=== PATIENT | female | born 1955 | race Caucasian/White ===

== ENCOUNTER 2021-04-21 07:32 | Outpatient (CLI) | payer MEDICARE ==
[2021-04-21 14:55] LABS: ALBUMIN 4.2 g/dL (3.2-5.5); ALBUMIN/GLOBULIN RATIO 1.6 (1.0-2.2); ALKALINE PHOSPHATASE 55 IU/L (42-121); ALT ALANINE AMINOTRANSFERASE 19 IU/L (10-60); AST ASPARTATE AMINOTRANSFERASE 25 IU/L (10-42); BILIRUBIN,TOTAL 1.5 mg/dL (0.2-1.0); BUN - BLOOD UREA NITROGEN 11 mg/dL (6-20); CARBON DIOXIDE - CO2 27 mmol/L (21-32); CHLORIDE 97 mmol/L (101-111); CHOLESTEROL 241 mg/dL; CREATININE 0.6 mg/dL (0.4-1.0); GFR - MDRD 100 (>89); GLUCOSE 104 mg/dL (70-100); HDL CHOLESTEROL 118 mg/dL; LDL CHOLESTEROL,CALCULATED 114 mg/dL; POTASSIUM 4.1 mmol/L (3.5-5.0); SODIUM 133 mmol/L (135-145); TOTAL PROTEIN 6.8 g/dL (6.7-8.2); TRIGLYCERIDES 43 mg/dL; VLDL CHOLESTEROL 9 mg/dL
[2021-04-21 15:04] LABS: THYROID STIMULATING HORMONE 3.04 uIU/mL (0.34-5.60)
[2021-04-21 15:20] LABS: BASOPHILS # (AUTO) 0.1 10^3/uL (0.0-0.1); BASOPHILS % (AUTO) 1.3 %; EOSINOPHILS # (AUTO) 0.1 10^3/uL (0.0-0.7); EOSINOPHILS % (AUTO) 1.3 %; HCT - HEMATOCRIT 39.4 % (37.0-47.0); LYMPHOCYTES # (AUTO) 1.2 10^3/uL (1.5-3.5); LYMPHOCYTES % (AUTO) 30.5 %; MEAN CORPUSCULAR HEMOGLOBIN 31.1 pg (27.0-31.0); MEAN CORPUSCULAR VOLUME 94.3 fL (81.0-99.0); MEAN PLATELET VOLUME 11.3 fL (7.9-10.8); MONOCYTES # (AUTO) 0.2 10^3/uL (0.0-1.0); MONOCYTES % (AUTO) 5.6 %; NEUTROPHILS # (AUTO) 2.4 10^3/uL (1.5-6.6); PLT - PLATELET COUNT 261 10^3/uL (130-450); RED BLOOD COUNT 4.18 10^6/uL (4.20-5.40); RED CELL DISTRIBUTION WIDTH 11.9 % (12.0-15.0); WHITE BLOOD COUNT 3.9 x10^3/uL (4.8-10.8)
[2021-04-21 20:10] LABS: ESTIMATED AVERAGE GLUCOSE 111 mg/dL (70-100); HEMOGLOBIN A1c% 5.5 % (4.27-6.07)
[2021-04-22 13:00] LABS: HEPATITIS C ANTIBODY NON-REACTIVE (NON-REACTIVE)
== END 2021-04-21 07:33 | disposition home or self-care (01) ==
LOC: LAB.S 07:32
PROVIDERS: ATTEND Internal Medicine
DX: R20.0 Anesthesia of skin (principal); Z11.59 Encounter for screening for other viral diseases; Z80.0 Family history of malignant neoplasm of digestive organs; R03.0 Elevated blood-pressure reading, without diagnosis of hypertension
CPT/HCPCS: 36415; 80053; 80061; 82607; 83036; 83721; 84443; 85025; 86803

== ENCOUNTER 2021-05-25 09:40 | Outpatient (CLI) | payer MEDICARE ==
--- NOTE | 2021-06-10 08:28 | Mammography Report ---
BILATERAL DIGITAL SCREENING MAMMOGRAM 3D/2D WITH EXAGGERATED CC: 05/25/2021 CLINICAL: Routine screening. No prior exams were available for comparison. The tissue of both breasts is heterogeneously dense. T his may lower the sensitivity of mammography. No significant masses, calcifications, or other findings are seen in either breast. IMPRESSION: NEGATIVE There is no mammographic evidence of malignancy. A 1 year screening mammogram is recommended. This exam was interpreted at Station ID: [id number]. NOTE: For mammograms, a report in lay terms will be sent to the patient. Approximately 15% of breast malignancies will not be visualized mammographically. In the management of a palpable breast mass, a negative mammogram must not discourage biopsy of a clinically suspicious lesion. Electronically Signed By: Jeyson Kumar M.D. ddp/penrad:06/09/2021 08:15:43 ACR BI-RADS Category 1: Negative 3341F PARENCHYMAL PATTERN: (D) - The breast(s) demonstrate(s) heterogeneously dense fibroglandular sandip hollingsworth. BI-RADS CATEGORY: (1) - 1 RECOMMENDATION: (ANNUAL) - Recommend routine annual screening mammography. [id number] 1 year screening LATERALITY: (B)
== END 2021-05-25 09:41 | disposition home or self-care (01) ==
LOC: DI.S 09:40
PROVIDERS: ATTEND Internal Medicine
DX: Z12.31 Encounter for screening mammogram for malignant neoplasm of breast (principal)

== ENCOUNTER 2023-02-07 08:43 | Outpatient (CLI) | payer MEDICARE ==
--- NOTE | 2023-02-09 09:00 | Mammography Report ---
BILATERAL DIGITAL SCREENING MAMMOGRAM 3D/2D: 02/07/2023 CLINICAL: Routine screening. Comparison is made to exam dated: 05/25/2021 mammogram - [facility]. Both breasts are heterogeneously dense, which may obscure small masses (category c / 51-75% glandular tissue). No significant masses, calcifications, or other findings are seen in either breast. There has been no significant interval change. IMPRESSION: NEGATIVE There is no mammographic evidence of malignancy. A 1 year screening mammogram is recommended. Based on the Tyrer Cuzick model (a risk assessment model) the patients lifetime risk is 11.1% and he r 10 year risk is 6.6%. According to the ACR, ACS, and NCCN guidelines, an annual breast MRI exam adrianne ng with mammogram is recommended if the patients lifetime risk is 20% or greater. This exam was interpreted at Station ID: [id number]. NOTE: For mammograms, a report in lay terms will be sent to the patient. Approximately 15% of breast malignancies will not be visualized mammographically. In the management of a palpable breast mass, a negative mammogram must not discourage biopsy of a clinically suspicious lesion. Electronically Signed By: Livan Padron M.D. aty/daryl:02/07/2023 10:06:12 letter sent: No_Letter ACR BI-RADS Category 1: Negative 3341F PARENCHYMAL PATTERN: (D) - The breast(s) demonstrate(s) heterogeneously dense fibroglandular parjaylay ma. BI-RADS CATEGORY: (1) - 1 Mammogram [id number] 1 year screening LATERALITY: (B)
== END 2023-02-07 08:44 | disposition home or self-care (01) ==
LOC: DI.S 08:43
PROVIDERS: ATTEND Internal Medicine
DX: Z12.31 Encounter for screening mammogram for malignant neoplasm of breast (principal)

== ENCOUNTER 2023-06-06 12:54 | Emergency (ER) | payer MEDICARE ==
[2023-06-06 13:37] VITALS: O2SAT 100
[2023-06-06] MEDS ORDERED: ONDANSETRON 4 MG/2 ML VIAL IVP STA (13:58)
[2023-06-06] MEDS ORDERED: SODIUM CHLORIDE 0.9% 1,000 ML IV STA (13:58)
[2023-06-06] MEDS ORDERED: HYDROmorphone 1 MG/ML CARPUJECT IVP STA (13:58)
--- NOTE | 2023-06-06 14:02 | ED Physician Documentation ---
History of Present Illness - Stated complaint Stated Complaint: ABD PX,VOMITING - Chief complaint Chief Complaint: Abd Pain - Additonal information Additional information: 67-year-old female presents emergency department for evaluation of sudden right lower quadrant abdominal pain with associated vomiting. Began while she was sitting at the sewing machine. No fevers. Patient denies any pertinent past surgical history. Denies any past medical history. Takes no prescribed medications. No tobacco or alcohol use. On presentation to the emergency department the patient appears very uncomfortable holding her right side of the abdomen. Review of Systems Constitutional: denies: Fever Throat: reports: Reviewed and negative Cardiac: reports: Reviewed and negative Respiratory: reports: Reviewed and negative GI: reports: Abdominal Pain, Nausea, Vomiting : reports: Reviewed and negative Skin: reports: Reviewed and negative Musculoskeletal: reports: Reviewed and negative PD PAST MEDICAL HISTORY - Past Medical History Past Medical History: No - Past Surgical History Past Surgical History: No - Present Medications Home Medications: Ambulatory Orders Medication Instructions Recorded Confirmed polyethylene glycoL 3350(BULK) 17 gm PO DAILY PRN #1 each 06/06/23 [Miralax] - Allergies Allergies/Adverse Reactions: Allergies Allergy/AdvReac Type Severity Reaction Status Date / Time No Known Drug Allergies Allergy Verified 06/06/23 13:33 - Social History Does the pt smoke?: No Smoking Status: Never smoker Does the pt drink ETOH?: Yes Does the pt have substance abuse?: No PD ED PE NORMAL - General General: Alert and oriented X 3. No: No acute distress (Uncomfortable and in pain. Crying. Holding her right abdomen.) - HEENT HEENT: PERRL - Neck Neck: Supple, no meningeal sign - Cardiac Cardiac: RRR - Respiratory Respiratory: No respiratory distress - Abdomen Abdomen: Normal bowel sounds, Soft. No: Non tender (He equivocal McBurney's. Positive guarding and rebound right lower quadrant percussion and palpation tenderness) - Back Back: No CVA TTP - Derm Derm: Normal color, Warm and dry - Extremities Extremities: No deformity - Neuro Neuro: Alert and oriented X 3, shopper 2-12 intact Eye Opening: Spontaneous Motor: Obeys Commands Verbal: Oriented GCS Score: 15 Results - Vitals Vitals: Vital Signs - 24 hr 06/06/23 06/06/23 06/06/23 13:29 13:33 15:33 Temperature 36.2 C L 36.5 C 36.5 C Heart Rate 54 L 54 L 60 Respiratory 16 16 16 Rate Blood Pressure 169/85 H 169/85 H 158/84 H O2 Saturation 100 100 100 06/06/23 17:00 Temperature 36.8 C Heart Rate 60 Respiratory 16 Rate Blood Pressure 140/82 H O2 Saturation 100 Oxygen O2 Source Room air - Labs Labs: Laboratory Tests 06/06/23 06/06/23 06/06/23 14:00 14:00 15:18 WBC 12.3 H RBC 4.39 Hgb 13.3 Hct 41.0 MCV 93.4 MCH 30.3 MCHC 32.4 RDW 12.2 Plt Count 265 MPV 10.2 Neut # (Auto) 10.5 H Lymph # (Auto) 1.1 L Spink # (Auto) 0.6 Eos # (Auto) 0.0 Baso # (Auto) 0.1 Absolute Nucleated RBC 0.00 Nucleated RBC % 0.0 Sodium 135 Potassium 4.2 Chloride 100 L Carbon Dioxide 28 Anion Gap 7.0 BUN 15 Creatinine 0.8 Estimated GFR (MDRD) 71 L Glucose 142 H Calcium 9.5 Total Bilirubin 1.2 H AST 19 ALT 12 Alkaline Phosphatase 55 Total Protein 7.3 Albumin 4.6 Globulin 2.7 Albumin/Globulin Ratio 1.7 Lipase 18 Urine Color YELLOW Urine Clarity CLEAR Urine pH 6.5 Ur Specific Baldwin 1.015 Urine Protein NEGATIVE Urine Glucose (UA) NEGATIVE Urine Ketones 40 H Urine Occult Blood SMALL H Urine Nitrite NEGATIVE Urine Bilirubin NEGATIVE Urine Urobilinogen 0.2 (NORMAL) Ur Leukocyte Esterase NEGATIVE Urine RBC 6-10 H Urine WBC 0-3 Ur Squamous Epith Cells RARE Squamous Urine Bacteria None Seen Ur Microscopic Review INDICATED Urine Culture Comments NOT INDICATED - Rads (name of study) abd pelvis w/IV contrast Relevant Findings:: Final report received (Unable to discretely identify the appendix. Mild to moderate distention of the right lower quadrant small and large bowel loops is seen. These are filled with fluid and fecal material. Sufficient clinical concern, consider repeat with IV and oral contrast.) PD Medical Decision Making - ED course Complexity details: reviewed results, re-evaluated patient, considered differential, d/w patient, d/w family ED course: 1400: This is a very uncomfortable appearing 67-year-old female that presents to the emergency department for evaluation of acute right lower quadrant abdominal pain. The patient began having pain about 2 hours ago while sitting at a sewing machine. Physical exam shows some guarding and rebound with an equivocal McBurney's in the right lower quadrant. This time I have a high degree of suspicion for acute appendicitis. Patient is surgically karri. I have ordered immediate labs as well as CT imaging. Unfortunately we do not have surgical coverage available at [facility] today and she will likely need transfer should there be positive pertinent CT findings. CT was evaluated by patient's labs of evaluated by myself showed a mild leukocytosis with white count of 12,000. Her electrolytes were without acute derangement. Subsequently a CT of the abdomen was completed to evaluate for the possibility for acute appendicitis. Also included in the differential was small bowel obstruction and obstructing renal stone. The CT of the abdomen was unable to identify the appendix. She did have some pelviectasis but no obstructing stones. Urine showed so denies signs of infection or hematuria. In the emergency department on evaluation I did give the patient a liter of fluid as well as Zofran and 0.5 mg of Dilaudid. On reevaluation she continues to have some percussion tenderness in the right lower quadrant but the pain is improved. Given that the CT scan was unable to identify the appendix and appendicitis could not be ruled out I then spoke on the phone with our surgeon Dr. Kavin Diaz. He graciously agreed to come to the bedside and evaluate the patient after he reviewed her labs and CT imaging. After his consultation he felt reassured on her exam and feels that the cause of the pain is likely some stool loading in the right lower quadrant. As such the patient will be discharged with a prescription for MiraLAX. Her first dose is given here in the ER. We have not definitively ruled out appendicitis but it is felt less likely at this juncture. I discussed the plan and findings with the patient and her and they are comfortable with discharge home with the understanding that should her pain worsen, she develop fevers, vomiting have black or bloody stools she will return immediately to the ER. She is also advised to have a follow-up colonoscopy to ensure there are no masses or lesions that could be contributing to her pain. Departure - Departure Disposition: 01 Home, Self Care Clinical Impression: RLQ abdominal pain Condition: Stable Record reviewed to determine appropriate education?: Yes Prescriptions: polyethylene glycoL 3350(BULK) [Miralax] 17 gm PO DAILY PRN #1 each PRN Reason: Constipation Comments: Hyacinth ruiz are seen today in the emergency department because you developed sudden pain in the right lower quadrant of your abdomen. Your labs today in the emergency department showed a mild white blood cell count elevation which is nonspecific. This can be seen in settings of stress or inflammation. The rest of your labs were without worrisome findings though there was a small amount of blood in your urine. Our concern initially was that you could possibly have appendicitis. We are also concerned about the possibility of kidney stones, bowel obstruction or even diverticulitis. A CT of the abdomen was performed and the appendix was not visualized. We do see a moderate amount of stool in the right lower quadrant of the abdomen. You were evaluated by her surgeon who was available to consult on you today. After his evaluation he feels that is less likely you have appendicitis and would like to try an burdening your colon of stool to see if that improves the pain. You are given a first dose of MiraLAX here in the ER and I recommend that you take it twice daily until you have 3 or 4 watery bowel movements. I would like you to follow closely with your primary care doctor. You should be referred for a screening colonoscopy and follow-up to make sure that there are no masses or lesions that are contributing to the lower abdominal pain, or the development of fecal matter in the lower abdomen. Please return immediately to the emergency department if you are developing worsening symptoms, have fevers, uncontrolled vomiting, black or bloody stools or any other concerns that your symptoms are not resolving as anticipated. Forms: PCP List
[2023-06-06 14:06] LABS: BASOPHILS # (AUTO) 0.1 10^3/uL (0.0-0.1); BASOPHILS % (AUTO) 0.4 %; EOSINOPHILS % (AUTO) 0.1 %; HGB - HEMOGLOBIN 13.3 g/dL (12.0-16.0); LYMPHOCYTES # (AUTO) 1.1 10^3/uL (1.5-3.5); LYMPHOCYTES % (AUTO) 9.1 %; MEAN CORPUSCULAR HEMOGLOBIN 30.3 pg (27.0-31.0); MEAN CORPUSCULAR HGB CONC 32.4 g/dL (32.0-36.0); MEAN CORPUSCULAR VOLUME 93.4 fL (81.0-99.0); MEAN PLATELET VOLUME 10.2 fL (7.9-10.8); MONOCYTES # (AUTO) 0.6 10^3/uL (0.0-1.0); NEUTROPHILS # (AUTO) 10.5 10^3/uL (1.5-6.6); NEUTROPHILS % (AUTO) 84.9 %; PLT - PLATELET COUNT 265 10^3/uL (130-450); RED BLOOD COUNT 4.39 10^6/uL (4.20-5.40); RED CELL DISTRIBUTION WIDTH 12.2 % (12.0-15.0); WHITE BLOOD COUNT 12.3 x10^3/uL (4.8-10.8)
[2023-06-06 14:19] LABS: ALBUMIN 4.6 g/dL (3.2-5.5); ALBUMIN/GLOBULIN RATIO 1.7 (1.0-2.2); BILIRUBIN,TOTAL 1.2 mg/dL (0.2-1.0); CALCIUM 9.5 mg/dL (8.5-10.3); CREATININE 0.8 mg/dL (0.6-1.3); POTASSIUM 4.2 mmol/L (3.5-4.5); TOTAL PROTEIN 7.3 g/dL (6.4-8.9)
[2023-06-06] MEDS ORDERED: iohexoL-300 100 ML VIAL IVP ONE (15:16)
[2023-06-06 15:32] LABS: BILIRUBIN,URINE NEGATIVE (NEGATIVE); GLUCOSE, URINE (UA) NEGATIVE (NEGATIVE); KETONES,URINE (UA) 40 mg/dL (NEGATIVE); LEUKOCYTE ESTERASE, URINE NEGATIVE (NEGATIVE); NITRITE,URINE NEGATIVE (NEGATIVE); OCCULT BLOOD,URINE SMALL (NEGATIVE); PH,URINE 6.5 PH (5.0-7.5); PROTEIN,URINE NEGATIVE (NEGATIVE); UROBILINOGEN,URINE 0.2 (NORMAL) E.U./dL (NORMAL)
[2023-06-06 15:39] LABS: CLARITY,URINE CLEAR (CLEAR)
--- NOTE | 2023-06-06 15:55 | CT Report ---
PROCEDURE: ABDOMEN/PELVIS W INDICATIONS: RLQ pain; ? appy CONTRAST: 100ml omni 300 TECHNIQUE: After the administration of IV contrast, 5 mm thick sections acquired from the diaphragms to the symp hysis. 5 mm thick coronal and sagittal reformats were acquired. For radiation dose reduction, the f ollowing was used: automated exposure control, adjustment of mA and/or kV according to patient size. COMPARISON: None FINDINGS: Image quality: Good Lower chest: Scattered scarring and atelectasis. No pleural effusions. Solid organs: Liver appears unremarkable. Gallbladder is unremarkable. Prominent CBD of 5 to 6 mm per no splenomegaly. No adrenal nodules. Moderate right pelviectasis. No obstructing stone identified. T here are pelvic phleboliths. Renal cysts are present. Vessels and lymph nodes: The main portal vein is patent. No abdominal aortic aneurysm. No pathologic lymph nodes by size criteria. Bowel and peritoneum: No evidence of small bowel obstruction. Appendix is not discretely seen. Mild t o moderate distention and fecal loading in the right lower quadrant small large bowel loops. Body wall: Unremarkable Pelvis: Bladder is unremarkable. Reproductive organs not well evaluated on CT, also unremarkable. Bones: Degenerative changes, no acute or suspicious osseous finding. IMPRESSION: Unable to discretely identify the appendix. Mild to moderate distention of right lower quadrant small and large bowel loops is seen, filled with fluid and fecal material. If there is sufficient concern, consider repeat imaging with IV and oral contrast. Reviewed by: Juancho Wu MD on 06/06/2023 3:54 PM PST Approved by: Juancho Wu MD on 06/06/2023 3:54 PM PST Station ID: [id number]
[2023-06-06 15:56] LABS: WBC,URINE 0-3 /HPF (0-5)
[2023-06-06 15:57] LABS: BACTERIA,URINE None Seen /HPF (None Seen); SQUAMOUS EPITHELIAL CELL,UR RARE Squamous (<= Few)
[2023-06-06] MEDS ORDERED: polyethylene glycoL 3350 17 GM PACKET PO STA (17:44)
--- NOTE | 2023-06-06 17:52 | CONSULTATION NOTE ---
Referring Provider Name of Referring Provider:: SHADY Maurer Consult Date: 06/06/23 Chief Complaint - Chief Complaint Chief Complaint: RLQ pain History of Present Illness - Admitted From Admitted From:: not admitted - seen in ED - History Obtained From Records Reviewed: Yes History obtained from: Patient, , chart and [place] Exam Limitations: None - History of Present Illness HPI Comment/Other: Patient is a 67 year old female who is known to me who presented to the ED with acute onset RLQ pain at about midday today. The pain was accompanied by nausea, vomiting, diaphoresis, and penetration of the pain to her back. The pain was described as sharp and was not migratory. The pain has not occurred previously and the patient reports a large sticky bowel movement this morning. No hematemesis, hematochezia, or melena. History - Past Medical History Neuro: reports: None HEENT: reports: None Psych: reports: None Meds/Allgy - Home Medications Home Medications: Ambulatory Orders Medication Instructions Recorded Confirmed polyethylene glycoL 3350(BULK) 17 gm PO DAILY PRN #1 each 06/06/23 [Miralax] - Allergies Allergies/Adverse Reactions: Allergies Allergy/AdvReac Type Severity Reaction Status Date / Time No Known Drug Allergies Allergy Verified 06/06/23 13:33 Review of Systems - Constitutional Constitutional: reports: Chills, Diaphoresis. denies: Fatigue, Fever - Eyes Eyes: denies: Pain, Irritation - Ears, Nose & Throat Ears, Nose & Throat: denies: Ear pain, Hearing loss - Cardiovascular Cariovascular: denies: Palpitations, Chest pain - Respiratory Respiratory: denies: Cough, Sputum production, Wheezing - Gastrointestinal Gastrointestinal: reports: Abdominal pain, Nausea, Vomiting. denies: Constipation, Diarrhea, Rectal bleeding, Black stools, Bloody stools - Genitourinary Genitourinary: reports: Hematuria. denies: Dysuria - Musculoskeletal Musculoskeletal: reports: Back pain. denies: Muscle pain - Neurological Neurological: denies: General weakness, Focal weakness - Psychiatric Psychiatric: denies: Depression - Hematologic/Lymphatic Hematologic/Lymphatic: denies: Anemia Exam - Vital Signs Reviewed Vital Signs: Yes Vital Signs: Vital Signs x48h Temp Pulse Resp BP Pulse Ox 06/06/23 17:00 36.8 C 60 16 140/82 H 100 06/06/23 15:33 36.5 C 60 16 158/84 H 100 06/06/23 13:33 36.5 C 54 L 16 169/85 H 100 06/06/23 13:29 36.2 C L 54 L 16 169/85 H 100 - Physical Exam General Appearance: positive: No acute distress Eyes Bilateral: positive: No lid inflammation, Conjunctivae nml, No scleral icterus ENT: positive: No signs of dehydration Neck: positive: Nml inspection, Trachea midline Respiratory: positive: Chest non-tender, No respiratory distress, Breath sounds nml Cardiovascular: positive: Regular rate & rhythm, No murmur, No gallop Abdomen: positive: Non-tender, Abnml bowel sounds (Slightly decreased.), Other (Patient able to standing jump with no pain. No Rovsings, no pain at McBurneys point. No peritoneal findings.) Skin: positive: Color nml, No rash, Warm, Dry. negative: Diaphoresis Extremities: positive: Non-tender, Nml appearance Neurologic/Psychiatric: positive: Oriented x3, Motor nml, Sensation nml, Mood/affect nml Conclusion/Plan - Lab Results Lab results reviewed: Yes Fish Bones: 06/06/23 14:00 06/06/23 14:00 - Diagnostic Imaging Results Diagnostic Imaging Results: positive: Final report reviewed, Read independently Diagnostic Imaging Results Comments: The negative predictive value of not seeing an appendix is about 85%. - Other Other Results/Comments: The physical examination combined with her presentation and the ability to jump without pain (also no pain at McBurneys point) strongly suggests that her pain is not due to appendicitis. I discussed this with the patient and her . I strongly suggest a laxative (non-bulk) to move the stool that is present in her RIGHT colon. I have instructed them that should her symptoms worsen to contact me through the ED. Examples include intractable pain, nausea or vomiting or a fever greater than 101 degrees Fahrenheit. They stated that they would. She indicted a preference for more natural approaches rather than a repeat CT scan of her abdomen and pelvis with gastrograffin. Please note that I was asked to see the patient after it was mistakenly thought that there was no surgical coverage. I appreciate the opportunity to participate in this patient's care. The patient can follow up with me as necessary as an outpatient. CPT 91336
[2023-06-06 18:21] VITALS: BP 130/80
== END 2023-06-06 18:17 | disposition home or self-care (01) ==
LOC: ED 12:54
DX: R10.31 Right lower quadrant pain (principal)
CPT/HCPCS: 36415; 74177; 80053; 81001; 83690; 85025; 96374; 96375; 99284; A9270; J1170; Q9967; 81003; 87086

== ENCOUNTER 2024-02-13 10:43 | Outpatient (CLI) | payer MEDICARE ==
--- NOTE | 2024-02-14 09:09 | Mammography Report ---
BILATERAL DIGITAL SCREENING MAMMOGRAM 3D/2D: 02/13/2024 CLINICAL: Routine screening. Comparison is made to exams dated: 02/07/2023 mammogram and 05/25/2021 mammogram - [facility]. Both breasts are heterogeneously dense, which may obscure small masses (category c / 51-75% glandular tissue). No significant masses, calcifications, or other findings are seen in either breast. There has been no significant interval change. IMPRESSION: NEGATIVE There is no mammographic evidence of malignancy. A 1 year screening mammogram is recommended. Based on the Tyrer Cuzick model (a risk assessment model) the patient's lifetime risk is 10.5% and he r 10 year risk is 6.7%. According to the ACR, ACS, and NCCN guidelines, an annual breast MRI exam adrianne ng with mammogram is recommended if the patient's lifetime risk is 20% or greater. This exam was interpreted at Station ID: [id number]. NOTE: For mammograms, a report in lay terms will be sent to the patient. Approximately 15% of breast malignancies will not be visualized mammographically. In the management of a palpable breast mass, a negative mammogram must not discourage biopsy of a clinically suspicious lesion. Electronically Signed By: Juancho smith/daryl:02/13/2024 13:32:45 letter sent: No_Letter ACR BI-RADS Category 1: Negative 3341F PARENCHYMAL PATTERN: (D) - The breast(s) demonstrate(s) heterogeneously dense fibroglandular sandip hollingsworth. BI-RADS CATEGORY: (1) - 1 RECOMMENDATION: (ANNUAL) - Recommend routine annual screening mammography. [id number] 1 year screening LATERALITY: (B)
== END 2024-02-13 10:44 | disposition home or self-care (01) ==
LOC: DI.S 10:43
PROVIDERS: ATTEND Internal Medicine
DX: Z12.31 Encounter for screening mammogram for malignant neoplasm of breast (principal); R92.333 Mammographic heterogeneous density, bilateral breasts